=== PATIENT | female | born 1990 | race Caucasian/White ===

== ENCOUNTER 2017-03-18 01:17 | Emergency (ER) | payer OTHER ==
[~2017-03-18] VITALS: Ht 154.9 cm; Wt 77.1 kg
[2017-03-18 01:22] VITALS: BP_SYST 143
--- NOTE | 2017-03-18 01:22 | NUR ---
Patient to ER bed 7 for evaluation. Side rails up.
--- NOTE | 2017-03-18 01:25 | NUR ---
Patient AAO x4, c/o migraine x "26 hrs" with nausea and vomiting and photophobia. No acute distress noted. Denies chest pain, denies shortness of breath, patient has hx of migraines and takes topamax or excedrin migrain for headaches. Will continue to monitor.
--- NOTE | 2017-03-18 01:30 | NUR ---
ER at bedside examining patient.
[2017-03-18] MEDS ORDERED: PROCHLORPERAZINE EDISYLATE 10 MG/2 ML VIAL IM ONE (01:45)
[2017-03-18] MEDS ORDERED: DIPHENHYDRAMINE INJ 50 MG/ML VIAL IM ONE (01:45)
--- NOTE | 2017-03-18 02:03 | NUR ---
Patient reports pain 8/10 15 minutes after administration of compazine and benadryl. No adverse reactions noted. Will continue to monitor.
--- NOTE | 2017-03-18 03:00 | NUR ---
Patient states her pain is between 7 and 8 and does not feel medication was effective. Md Notified.
[2017-03-18] MEDS ORDERED: MORPHINE 2 MG/ML INJ. SYRINGE IM ONE (03:15)
--- NOTE | 2017-03-18 03:28 | NUR ---
Patient reports pain 2/10 15 minutes after administration of morphine. No adverse reactions noted. Will continue to monitor.
[2017-03-18 03:30] VITALS: BP_SYST 125
--- NOTE | 2017-03-18 03:30 | NUR ---
Patient given written and verbal discharge instructions and verbalizes understanding. ER MD discussed with patient the results and treatment provided. Patient in stable condition. ID arm band removed. Rx of compazine and benadryl given. Patient educated on pain management and to follow up with PMD. Pain Scale 2/10, tolerable by patient, patient requesting discharge to go home stating, "I just need to sleep and usually the pain goes away by the time I wake up." Opportunity for questions provided and answered. Brother and friend picked patient up for discharge.
== END 2017-03-18 03:30 | disposition home or self-care (01) ==
LOC: SED 01:17
DX: G43.919 Migraine, unspecified, intractable, without status migrainosus (principal)
CPT/HCPCS: 96372; 99284; J0780; J1200; J2270

== ENCOUNTER 2019-10-06 09:25 | Emergency (ER) | payer OTHER ==
[~2019-10-06] VITALS: Ht 152.4 cm; Wt 81.6 kg
[2019-10-06] MEDS ORDERED: NACL 0.9% 1,000 ML IV ONE (09:29)
[2019-10-06 09:31] VITALS: BP_SYST 148
--- NOTE | 2019-10-06 09:37 | NUR ---
Patient to ER bed 8 to gown for evaluation. Side rails up. Report given to KENDALL Moore.
--- NOTE | 2019-10-06 09:40 | NUR ---
Patient arrived in the ED c/o lower abdominal pain and pink-tinged urine that started yesterday. Denied any fevers, chills, or gross hematuria. Patient is alert and oriented x4, respirations even and unlabored, speaking in full sentences, ambulating with a steady gait. VSS, pain level 6/10. LBM 10/05/19, LMP 09/24/19. Informed of wait time. Friend at bedside. Instructed to notify ED staff of any changes in condition or worsening of symptoms. Patient verbalized understanding.
--- NOTE | 2019-10-06 09:59 | NUR ---
Blood specimen collected at bedside. Patient tolerated the procedure well.
[2019-10-06 10:11] LABS: BASOPHILS % (AUTO) 0.5 % (0.0-2.0); EOSINOPHILS % (AUTO) 0.6 % (0.0-4.0); HEMATOCRIT 40.8 % (36-48); HEMOGLOBIN 14.1 g/dL (12.0-16.0); LYMPHOCYTES # (AUTO) 1.8 K/uL (1.0-5.5); LYMPHOCYTES % (AUTO) 25.8 % (20.5-51.5); MEAN CORPUSCULAR HEMOGLOBIN 34 pg (27-31); MEAN CORPUSCULAR HGB CONC 35 % (32-36); MEAN CORPUSCULAR VOLUME 98 fL (79.0-98.0); MONOCYTES # (AUTO) 0.3 K/uL (0.0-1.0); MONOCYTES % (AUTO) 4.7 % (1.7-9.3); NEUTROPHILS # (AUTO) 4.7 K/uL (1.8-7.7); NEUTROPHILS % (AUTO) 68.4 % (40.0-70.0); PLATELET COUNT (AUTO) 285 K/uL (130-430); RED BLOOD CELL COUNT(AUTO) 4.17 MIL/uL (4.2-6.2); WHITE BLOOD COUNT (AUTO) 6.9 K/uL (4.8-10.8)
--- NOTE | 2019-10-06 10:16 | NUR ---
X-ray done at bedside as ordered by Dr. Mahoney. Patient tolerated the procedure well.
[2019-10-06 10:17] LABS: BILIRUBIN,URINE NEGATIVE (NEGATIVE); BLOOD, URINE 3+ (NEGATIVE); CLARITY/URINE CLOUDY (CLEAR); COLOR,URINE YELLOW (YELLOW); GLUCOSE,URINE NEGATIVE (NEGATIVE); KETONES,URINE NEGATIVE (NEGATIVE); LEUKOCYTE ESTERASE ,URINE NEGATIVE (NEGATIVE); NITRITE, URINE NEGATIVE (NEGATIVE); PROTEIN URINE 1+ (NEGATIVE); UROBILINOGEN,URINE 0.2 (0.2-1.0)
[2019-10-06 10:27] LABS: BACTERIA,URINE FEW /HPF (None Seen); RBC,URINE >100 /HPF (0-3); WBC,URINE 0-3 /HPF (0-3)
[2019-10-06 10:30] LABS: CALCIUM 8.3 mg/dL (8.4-11.0); CREATININE 0.69 mg/dL (0.55-1.30); POTASSIUM 3.8 mmol/L (3.5-5.1)
[2019-10-06 10:32] LABS: PROTHROMBIN TIME 9.8 SECS (9.5-12.5)
[2019-10-06 10:34] LABS: ALBUMIN 3.6 g/dL (3.4-4.8); TOTAL BILIRUBIN 0.5 mg/dL (0.0-1.0)
--- NOTE | 2019-10-06 10:48 | NUR ---
# 20 gauge angiocath placed to RAC. Use of asceptic technique. Opsite placed over site. Blood return noted. Flushed with 10 cc of normal saline. No evidence of infiltration noted. Patient tolerated well.
--- NOTE | 2019-10-06 11:10 | NUR ---
Ambulated to the bathroom with a steady gait.
--- NOTE | 2019-10-06 11:39 | NUR ---
Patient is taken to US, in stable condition.
--- NOTE | 2019-10-06 12:55 | NUR ---
Pt ambulatory to restroom, no N/V noted.
[2019-10-06] MEDS ORDERED: KETOROLAC TROMETHAMINE 30 MG VIAL IVP ONE (13:00)
--- NOTE | 2019-10-06 13:08 | NUR ---
Administered Toradol 30mg IVP as ordered by Dr. Mahoney. Patient tolerated the medication well.
--- NOTE | 2019-10-06 13:24 | NUR ---
Patient given written and verbal discharge instructions and verbalizes understanding. ER MD discussed with patient the results and treatment provided. Patient in stable condition. ID arm band removed. IV catheter removed intact and dressing applied, no active bleeding. Rx of Naproxen given. Patient educated on pain management and to follow up with PMD. Pain Scale 0/10. Opportunity for questions provided and answered. Medication side effect fact sheet provided.
--- NOTE | 2019-10-06 13:24 | NUR ---
ER Dr. Mahoney at bedside re-examining patient.
[2019-10-06 13:25] VITALS: BP_SYST 148
== END 2019-10-06 13:24 | disposition home or self-care (01) ==
LOC: SED 09:25
DX: N92.1 Excessive and frequent menstruation with irregular cycle (principal); G43.909 Migraine, unspecified, not intractable, without status migrainosus
CPT/HCPCS: 36415; 71045; 76830; 76857; 80053; 81000; 81025; 82150; 82550; 83605; 83690; 85025; 85610; 85730; 87040; 96374; 99284; J1885; J7030; 96361

== ENCOUNTER 2019-11-29 10:12 | Emergency (ER) | payer OTHER ==
[~2019-11-29] VITALS: Ht 154.9 cm; Wt 77.1 kg
--- NOTE | 2019-11-29 10:23 | NUR ---
Patient to ER bed 06 to gown for evaluation. Side rails up.
--- NOTE | 2019-11-29 10:25 | NUR ---
Patient presents to ER C/O abdominal pain. Patient A&Ox4, ambulatory to ER, afebrile, skin pink and warm, nausea, vomiting, denies diarrhea, pain Patient states abdominal pain statrted yesterday to left side abdomen, with nausea and vomiting today.
[2019-11-29] MEDS ORDERED: [UNRECOGNIZED DRUG - OTHER] PO (10:28)
[2019-11-29 10:29] VITALS: BP_SYST 146
[2019-11-29] MEDS ORDERED: LIP20 PO (10:29)
[2019-11-29] MEDS ORDERED: [UNRECOGNIZED DRUG - OTHER] PO (10:29)
[2019-11-29] MEDS ORDERED: MORPHINE 2 MG/ML INJ. SYRINGE IVP ONE (10:45)
[2019-11-29] MEDS ORDERED: NACL 0.9% 1,000 ML IV ONE (10:45)
[2019-11-29] MEDS ORDERED: ONDANSETRON HCL 4 MG/2 ML VIAL IVP ONE (10:45)
[2019-11-29 11:26] LABS: BASOPHILS % (AUTO) 0.2 % (0.0-2.0); EOSINOPHILS % (AUTO) 0.2 % (0.0-4.0); HEMATOCRIT 44.2 % (36-48); HEMOGLOBIN 15.4 g/dL (12.0-16.0); LYMPHOCYTES # (AUTO) 1.1 K/uL (1.0-5.5); LYMPHOCYTES % (AUTO) 9.3 % (20.5-51.5); MEAN CORPUSCULAR HEMOGLOBIN 34 pg (27-31); MEAN CORPUSCULAR HGB CONC 35 % (32-36); MEAN CORPUSCULAR VOLUME 97 fL (79.0-98.0); MONOCYTES # (AUTO) 0.5 K/uL (0.0-1.0); MONOCYTES % (AUTO) 4.1 % (1.7-9.3); NEUTROPHILS # (AUTO) 9.9 K/uL (1.8-7.7); NEUTROPHILS % (AUTO) 86.2 % (40.0-70.0); PLATELET COUNT (AUTO) 343 K/uL (130-430); RED BLOOD CELL COUNT(AUTO) 4.56 MIL/uL (4.2-6.2); RED CELL DISTRIBUTION WIDTH 12.9 % (9.0-15.0); WHITE BLOOD COUNT (AUTO) 11.4 K/uL (4.8-10.8)
--- NOTE | 2019-11-29 11:28 | NUR ---
ER Dr. Swanson at bedside examining patient.
[2019-11-29 11:31] LABS: CALCIUM 9.5 mg/dL (8.4-11.0); CREATININE 0.8 mg/dL (0.55-1.30); POTASSIUM 3.9 mmol/L (3.5-5.1)
[2019-11-29 11:36] LABS: ALBUMIN 4.1 g/dL (3.4-4.8); TOTAL BILIRUBIN 0.5 mg/dL (0.0-1.0)
[2019-11-29 11:37] LABS: BILIRUBIN,URINE NEGATIVE (NEGATIVE); BLOOD, URINE 3+ (NEGATIVE); CLARITY/URINE SL CLOUDY (CLEAR); COLOR,URINE YELLOW (YELLOW); GLUCOSE,URINE NEGATIVE (NEGATIVE); KETONES,URINE NEGATIVE (NEGATIVE); LEUKOCYTE ESTERASE ,URINE TRACE (NEGATIVE); NITRITE, URINE NEGATIVE (NEGATIVE); PROTEIN URINE 1+ (NEGATIVE); UROBILINOGEN,URINE 0.2 (0.2-1.0)
[2019-11-29 11:44] LABS: BACTERIA,URINE FEW /HPF (None Seen); MUCUS,URINE 2+ /LPF (None Seen)
[2019-11-29] MEDS ORDERED: KETOROLAC TROMETHAMINE 30 MG VIAL IVP ONE (12:00)
[2019-11-29 13:06] VITALS: BP_SYST 157
--- NOTE | 2019-11-29 13:06 | NUR ---
Patient given written and verbal discharge instructions and verbalizes understanding. ER MD discussed with patient the results and treatment provided. Patient in stable condition. ID arm band removed. IV catheter removed intact and dressing applied, no active bleeding. Rx of norco, motrin, flowmax given. Patient educated on pain management and to follow up with PMD. Pain Scale 2/10 tolerable for patient. Opportunity for questions provided and answered. Medication side effect fact sheet provided.
== END 2019-11-29 13:06 | disposition home or self-care (01) ==
LOC: SED 10:12
DX: N23 Unspecified renal colic (principal); R11.10 Vomiting, unspecified; G43.909 Migraine, unspecified, not intractable, without status migrainosus
CPT/HCPCS: 36415; 74176; 80053; 81000; 81002; 81025; 85025; 96361; 96374; 96375; 99284; J1885; J2270; J2405; J7030

== ENCOUNTER 2022-11-22 11:26 | Emergency (ER) | payer OTHER ==
[~2022-11-22] VITALS: Ht 152.4 cm; Wt 59.0 kg
[~2022-11-22 11:26] MED LIST: LIP20 PO; [UNRECOGNIZED DRUG - OTHER] PO; [UNRECOGNIZED DRUG - OTHER] PO
[2022-11-22 11:48] VITALS: BP_SYST 140
--- NOTE | 2022-11-22 11:51 | NUR ---
Patient to ER bed 7 to gown for evaluation. Side rails up. Report given to FIORDALIZA ARGUETA.
--- NOTE | 2022-11-22 11:55 | NUR ---
PT BIB SELD AWAKE AND ALERT AOX4, NO SOB OR DISTRESS. PT C/O VAGINAL BLEEDING FOR PAST 2 WEEKS. PT STATED THAT LAST NIGHT HER BLEEDING GOT WORSE AND BECAME PAINFUL. PT DENIES N/V/D.
--- NOTE | 2022-11-22 12:00 | NUR ---
MD DR DUNAWAY AT BEDSIDE
[2022-11-22] MEDS ORDERED: KETOROLAC TROMETHAMINE 60 MG/2 ML VIAL IM ONE (12:15)
--- NOTE | 2022-11-22 12:22 | NUR ---
PT TAKEN TO CT Addendum: 11/22/22 at 1222 by TAURUSEDTE PT TAKEN TO US
--- NOTE | 2022-11-22 12:22 | NUR ---
Patient transported to radiology via WALKED, accompanied by US TECH.
[2022-11-22 12:30] LABS: BASOPHILS % (AUTO) 0.5 % (0.0-2.0); EOSINOPHILS % (AUTO) 0.3 % (0.0-4.0); HEMATOCRIT 38.6 % (36-48); HEMOGLOBIN 13.3 g/dL (12.0-16.0); LYMPHOCYTES # (AUTO) 1.7 K/uL (1.0-5.5); LYMPHOCYTES % (AUTO) 27.4 % (20.5-51.5); MEAN CORPUSCULAR HEMOGLOBIN 34 pg (27-31); MEAN CORPUSCULAR HGB CONC 34 % (32-36); MEAN CORPUSCULAR VOLUME 97 fL (79.0-98.0); MONOCYTES # (AUTO) 0.3 K/uL (0.0-1.0); MONOCYTES % (AUTO) 4.4 % (1.7-9.3); NEUTROPHILS # (AUTO) 4.1 K/uL (1.8-7.7); NEUTROPHILS % (AUTO) 67.4 % (40.0-70.0); PLATELET COUNT (AUTO) 301 K/uL (130-430); RED BLOOD CELL COUNT(AUTO) 3.97 MIL/uL (4.2-6.2); RED CELL DISTRIBUTION WIDTH 13.2 % (9.0-15.0); WHITE BLOOD COUNT (AUTO) 6.1 K/uL (4.8-10.8)
[2022-11-22 12:46] LABS: CALCIUM 8.2 mg/dL (8.4-11.0); CREATININE 0.77 mg/dL (0.55-1.30)
[2022-11-22 12:49] LABS: ALBUMIN 3.4 g/dL (3.4-4.8); TOTAL BILIRUBIN 0.6 mg/dL (0.0-1.0)
[2022-11-22 15:51] VITALS: BP_SYST 135
--- NOTE | 2022-11-22 15:52 | NUR ---
Patient given written and verbal discharge instructions and verbalizes understanding. ER MD DR DUNAWAY discussed with patient the results and treatment provided. Patient in stable condition. ID arm band removed. Patient educated on pain management and to follow up with PMD. Pain Scale 2/10. Opportunity for questions provided and answered. Medication side effect fact sheet provided.
== END 2022-11-22 15:52 | disposition home or self-care (01) ==
LOC: SED 11:26
DX: N93.8 Other specified abnormal uterine and vaginal bleeding (principal); R10.30 Lower abdominal pain, unspecified; E78.5 Hyperlipidemia, unspecified; Z79.899 Other long term (current) drug therapy
CPT/HCPCS: 99285; 76830; 80053; 85025; 36415; 81025; 96372; J1885

== ENCOUNTER 2024-05-08 05:44 | Day surgery (SDC) | payer OTHER ==
[~2024-05-08] VITALS: Ht 152.4 cm; Wt 81.6 kg
[2024-05-08] MEDS ORDERED: CEFAZOLIN SOD 2 GM in D5W 50 ML IV ONE (07:00)
[2024-05-08] MEDS ORDERED: fentaNYL CITRATE/PF 100 MCG/2 ML AMP ONE (07:42)
[2024-05-08] MEDS ORDERED: MIDAZOLAM HCL 2 MG/2 ML VIAL (VERSED) ONE (07:42)
[2024-05-08] MEDS ORDERED: OXYCODONE/ACETAMINOPHEN 5-325 TABLET PO PRN ×2 (08:45)
[2024-05-08] MEDS ORDERED: HYDROcodone/ACETAMIN 5-325 MG TAB (NORCO/ VICODIN) PO PRN (08:45)
[2024-05-08] MEDS ORDERED: ONDANSETRON HCL 4 MG/2 ML VIAL IVP PRN (08:45)
[2024-05-08] MEDS ORDERED: SEVOFLURANE 15 MIN GAS INH ONE (09:15)
[2024-05-08] MEDS ORDERED: SUGAMMADEX SODIUM 200 MG/2 ML VIAL IV ONE (09:15)
[2024-05-08] MEDS ORDERED: LR 1,000 ML IV.SOLN IV ONE (09:15)
[2024-05-08] MEDS ORDERED: NS IRRIG SOLN 1000 ML IR ONE (09:15)
[2024-05-08] MEDS ORDERED: ROCURONIUM BROMIDE 10 MG/ML (ZEMURON) ONE (09:15)
[2024-05-08] MEDS ORDERED: KETOROLAC TROMETHAMINE 30 MG VIAL ONE (09:15)
[2024-05-08] MEDS ORDERED: WATER FOR IRRIGATION,STERILE 1,000 ML IRRIG.SOLN IR ONE (09:15)
[2024-05-08] MEDS ORDERED: DEXAMETHASONE SOD PHOSPHATE 4 MG/ML VIAL ONE (09:15)
[2024-05-08] MEDS ORDERED: NS 1000 ML IV.SOLN IV ONE (09:15)
[2024-05-08] MEDS ORDERED: PROPOFOL 200MG/ 20ML VIAL (DIPRIVAN) IV ONE (09:15)
[2024-05-08] MEDS ORDERED: ONDANSETRON HCL 4 MG/2 ML VIAL ONE (09:15)
[2024-05-08 13:08] VITALS: O2SAT 97
[2024-05-08 15:03] VITALS: BP_SYST 122; PULSE 65; RESP 18
== END 2024-05-08 10:47 | disposition home or self-care (01) ==
LOC: SDS 05:44
PROVIDERS: ATTEND Specialist
DX: N92.1 Excessive and frequent menstruation with irregular cycle (principal); D25.9 Leiomyoma of uterus, unspecified; N84.0 Polyp of corpus uteri; I10 Essential (primary) hypertension; E11.9 Type 2 diabetes mellitus without complications; E03.9 Hypothyroidism, unspecified; G43.909 Migraine, unspecified, not intractable, without status migrainosus; Z79.890 Hormone replacement therapy; Z79.899 Other long term (current) drug therapy; Z98.818 Other dental procedure status
CPT/HCPCS: 87081; 58561; 82948; 88305; 58300; J3490; J0690; J1100; J1885; J3465; J2405; J2704; J3010; J7060; J7120; J7030; C1819